=== PATIENT | male | born 1945 | race Caucasian/White ===

== ENCOUNTER 2017-10-08 12:29 | Observation (INO) | payer OTHER ==
--- NOTE | 2017-10-08 12:40 | DR.CP ---
HPI - Time Seen Time seen: 12:30 - HPI Comment HPI Comment: HISTORY HTN AND HYPERLIPIDEMIA. DENIES CHEST PAIN. - Complaint Chief Complaint Doctor Comments: IRREGULAR HEART RATE, DIZZINESS AND RAPID HEART RATE. STARTED WHEN PATIENT WAS LEAVING [place]. REMOTE HISTORY OF A FIB BUT NOT ON MED FOR IT. - Reviewed Nurses Notes Review: Yes - Source History Provided: Parent - Timing Came on: Suddenly - Duration Duration: Constant Duration: Hours - Location Chest Pain Radiation Location: None - Context Cardiac Risk Factors: Hyperlipidemia, HTN PE Risk Factors: None Prehospital Care: None - Quality Quality: Other (DIZZINESS) - Severity Severity: Moderate - Modifying Factors Worsens: Nothing Impoves: Nothing - Associated Signs and Symptoms Associated Signs and Symptoms: Other (DIZZINESS) ROS - Review of Systems Constitutional: Weakness, Fatigue Eyes: No Symptoms Reported ENTM: No Symptoms Reported Respiratoy: No Symptoms Reported Cardiovascular: No Symptoms Reported Gastrointestinal/Abdominal: No Symptoms Reported Genitourinary: No Symptoms Reported Neurological: Weakness, Dizziness Musculoskeletal: No Symptoms Reported Integumentary: No Symptoms Reported Hematologic/Lymphatic: No Symptoms Reported Endocrine: No Symptoms Reported All Other Systems: Reviewed and Negative PE - Vitals Vitals: Temperature 98.0 F Pulse Rate [Right Brachial] 93 Pulse Rate 118 Respiratory Rate 18 Blood Pressure [Right Arm] 136/99 Blood Pressure 128/78 O2 Sat by Pulse Oximetry 97 - General Limitations: No Limitations General Appearance: Alert - Head Head Exam: Normal Inspection - Eyes Eye exam: Normal Appearance - ENT ENT Exam: Normal External Ear Exam - Chest Chest Inspection: Symmetric Chest Wall Rise - Respiratory Respiratory Exam: Normal Lung Sounds Bilat Respiratory Exam: Bilateral Clear to Auscultation - Cardiovascular Cardiovascular Exam: Irregular Rhythm - Abdominal Exam Abdominal Exam: Normal Bowel Sounds, Soft. negative: Tenderness - Extremities Extremities Exam: Normal Inspection - Back Back Exam: Normal Inspection - Neurologic Neurological Exam: Alert, Oriented X3 - Psychiatric Psychiatric Exam: Normal Affect, Normal Mood - Skin Skin Exam: Normal Color MDM - Additional Information Additional Information Obtained From: Family - Differential Diagnosis Differential Diagnosis: Myocardial Infarction (ARRHYTHMIA, HTN) Course - Consultation Consultation Comments: DISCUSS PATIENT WITH DR. TREADWELL. HE WILL ADMIT PATIENT. - Education/Counseling Education/Counseling: Patient, Family, Education Educated On: Treatment, Diagnosis ROR - Labs Reviewed Laboratory Results Reviewed?: Yes Result Diagrams: 10/09/17 05:24 10/09/17 05:24 Laboratory: WBC 6.7 X10^3/uL (3.6-10.0) 10/08/17 12:37 RBC 5.31 X10^6/uL (4.7-6.0) 10/08/17 12:37 Hgb 15.8 g/dL (13.5-18.0) 10/08/17 12:37 Hct 45.5 % (42.0-54.0) 10/08/17 12:37 MCV 85.7 fL (80.0-100.0) 10/08/17 12:37 MCH 29.7 pg (27.0-34.0) 10/08/17 12:37 MCHC 34.6 g/dL (33.0-35.0) 10/08/17 12:37 RDW 14.3 % (11.6-16.5) 10/08/17 12:37 Plt Count 240 X10^3/uL (150.0-450.0) 10/08/17 12:37 MPV 8.0 fL (7.4-11.0) 10/08/17 12:37 Neut % (Auto) 48.7 % (42.0-75.0) 10/08/17 12:37 Lymph % (Auto) 38.7 % (21.0-51.0) 10/08/17 12:37 Emanuel % (Auto) 9.0 % (0.0-13.0) 10/08/17 12:37 Eos % (Auto) 2.4 % (0.9-2.9) 10/08/17 12:37 Baso % (Auto) 1.2 % (0.2-1.0) H 10/08/17 12:37 Neut # (Auto) 3.3 x10^3/uL (2.2-4.8) 10/08/17 12:37 Lymph # (Auto) 2.6 X10^3/uL (1.3-2.9) 10/08/17 12:37 Emanuel # (Auto) 0.6 x10^3/uL (0.3-0.8) 10/08/17 12:37 Eos # (Auto) 0.2 x10^3/uL (0.0-0.2) 10/08/17 12:37 Baso # (Auto) 0.1 X10^3/uL (0.0-0.1) 10/08/17 12:37 Absolute Nucleated RBC 0.1 /100WBC 10/08/17 12:37 Sodium 140 mmol/L (136-145) 10/08/17 12:37 Corrected Sodium TNP 10/08/17 12:37 Potassium 3.9 mmol/L (3.5-5.1) 10/08/17 12:37 Chloride 106 mmol/L (98-107) 10/08/17 12:37 Carbon Dioxide 23.3 mmol/L (21-32) 10/08/17 12:37 BUN 17 mg/dL (7-18) 10/08/17 12:37 Creatinine 1.21 mg/dL (0.70-1.30) 10/08/17 12:37 Est GFR (MDRD) Af Amer > 60 (>60) 10/08/17 12:37 Est GFR (MDRD) Non-Af > 60 (>60) 10/08/17 12:37 Glucose 103 mg/dL (65-99) H 10/08/17 12:37 Calcium 8.6 mg/dL (8.5-10.1) 10/08/17 12:37 Corrected Calcium TNP 10/08/17 12:37 Total Bilirubin 0.40 mg/dL (0.2-1.0) 10/08/17 12:37 AST 25 Units/L (15-37) 10/08/17 12:37 ALT 36 Units/L (12-78) 10/08/17 12:37 Alkaline Phosphatase 78 Units/L (46-116) 10/08/17 12:37 Creatine Kinase 131 Units/L (39-308) 10/08/17 12:37 CK-MB (CK-2) 1.8 ng/mL (0-4.0) 10/08/17 12:37 CK/CKMB % Calc 1.4 % (<4) 10/08/17 12:37 Troponin I < 0.02 ng/mL (0-1.5) 10/08/17 12:37 Total Protein 8.0 g/dL (6.4-8.2) 10/08/17 12:37 Albumin 3.9 g/dL (3.4-5.0) 10/08/17 12:37 Globulin 4.1 g/dL (2.5-4.5) 10/08/17 12:37 Albumin/Globulin Ratio 1.0 Ratio (1.1-2.1) L 10/08/17 12:37 - XRAY XRAY Interpreted by: Radiologist XRAY Findings: REPORT DISCUSS WITH PATIENT. - EKG Rhythm: Afib (WITH RVR, EKG NOTED) - Diagnosis Discharge Problem: Atrial fibrillation with RVR, Dizziness Hypertension Qualifiers: Hypertension type: essential hypertension Qualified Code(s): I10 - Essential ( primary) hypertension - Discharge Plan Disposition: ADMITTED INPATIENT Condition: Stable - Follow ups/Referrals - Instructions
[2017-10-08 12:44] VITALS: BMI 36.1
[2017-10-08 12:51] LABS: BASOPHILS # (AUTO) 0.1 X10^3/uL (0.0-0.1); BASOPHILS % (AUTO) 1.2 % (0.2-1.0); EOSINOPHILS # (AUTO) 0.2 x10^3/uL (0.0-0.2); EOSINOPHILS % (AUTO) 2.4 % (0.9-2.9); HEMATOCRIT 45.5 % (42.0-54.0); HEMOGLOBIN 15.8 g/dL (13.5-18.0); LYMPHOCYTES # (AUTO) 2.6 X10^3/uL (1.3-2.9); LYMPHOCYTES % (AUTO) 38.7 % (21.0-51.0); MEAN CORPUSCULAR HEMOGLOBIN 29.7 pg (27.0-34.0); MEAN CORPUSCULAR HGB CONC 34.6 g/dL (33.0-35.0); MEAN CORPUSCULAR VOLUME 85.7 fL (80.0-100.0); MONOCYTES # (AUTO) 0.6 x10^3/uL (0.3-0.8); NEUTROPHILS # (AUTO) 3.3 x10^3/uL (2.2-4.8); NEUTROPHILS % (AUTO) 48.7 % (42.0-75.0); PLATELET COUNT 240 X10^3/uL (150.0-450.0); RED BLOOD COUNT 5.31 X10^6/uL (4.7-6.0); RED CELL DISTRIBUTION WIDTH 14.3 % (11.6-16.5); WHITE BLOOD COUNT 6.7 X10^3/uL (3.6-10.0)
--- NOTE | 2017-10-08 12:57 | RAD ---
HISTORY: 72-year-old male with dizziness. Study: Frontal view of the chest. Comparison: None. Findings: The trachea is midline. The cardiac silhouette is enlarged with low lung volumes and prominent perih ilar lung markings/interstitium. The lungs are clear without focal consolidation, effusion or pneumo thorax. Soft tissues are unremarkable. Osseous structures are unremarkable. IMPRESSION: 1. Cardiomegaly with prominent interstitium/perihilar lung markings. No other acute cardiopulmonary process. Reported By:
[2017-10-08 13:05] LABS: BLOOD UREA NITROGEN 17 mg/dL (7-18); CALCIUM 8.6 mg/dL (8.5-10.1); CARBON DIOXIDE 23.3 mmol/L (21-32); CHLORIDE 106 mmol/L (98-107); CREATININE 1.21 mg/dL (0.70-1.30); SODIUM 140 mmol/L (136-145); TROPONIN I < 0.02 ng/mL (0-1.5); eGFR BLACK RACES > 60 (>60); eGFR NON BLACK RACES > 60 (>60)
[2017-10-08 13:09] LABS: ALANINE AMINOTRANSFERASE 36 Units/L (12-78); ALBUMIN 3.9 g/dL (3.4-5.0); ALKALINE PHOSPHATASE 78 Units/L (46-116); ASPARTATE AMINO TRANSFERASE 25 Units/L (15-37); CKMB % 1.4 % (<4); CREATINE KINASE 131 Units/L (39-308); CREATINE KINASE MB 1.8 ng/mL (0-4.0)
[2017-10-08] MEDS ORDERED: DEMEROL INJ IVP ONE (16:03)
[2017-10-08] MEDS ORDERED: ASPIRIN 81 MG CHEWTAB PO ONE (16:05)
[2017-10-08] MEDS ORDERED: NS 1000 ML 1,000 ML ONE (16:27)
[2017-10-08] MEDS: NS 1000 ML 1,000 ML IV SCH (16:46)
[2017-10-08] MEDS: CARDIZEM TAB 30 MG PLAIN PO SCH ×2 (16:48→21:23)
[2017-10-08 18:38] LABS: CKMB % 1.5 % (<4); CREATINE KINASE 106 Units/L (39-308); CREATINE KINASE MB 1.6 ng/mL (0-4.0); TROPONIN I < 0.02 ng/mL (0-1.5)
[2017-10-08] MEDS: ELIQUIS PO SCH (20:40)
[2017-10-08 23:20] LABS: FREE T4 (FREE THYROXINE) 0.83 ng/dL (0.76-1.46); TSH (3RD GENERATION) 1.654 uIU/mL (0.358-3.74)
[2017-10-09 01:50] LABS: CKMB % 1.3 % (<4); CREATINE KINASE 96 Units/L (39-308); CREATINE KINASE MB 1.2 ng/mL (0-4.0); TROPONIN I < 0.02 ng/mL (0-1.5)
[2017-10-09] MEDS: NS 1000 ML 1,000 ML IV SCH ×2 (05:08→21:06)
[2017-10-09] MEDS: CARDIZEM TAB 30 MG PLAIN PO SCH ×3 (05:54→21:07)
[2017-10-09 06:24] LABS: BASOPHILS # (AUTO) 0.1 X10^3/uL (0.0-0.1); BASOPHILS % (AUTO) 1.4 % (0.2-1.0); EOSINOPHILS # (AUTO) 0.2 x10^3/uL (0.0-0.2); EOSINOPHILS % (AUTO) 3.1 % (0.9-2.9); HEMATOCRIT 42.2 % (42.0-54.0); HEMOGLOBIN 14.2 g/dL (13.5-18.0); LYMPHOCYTES # (AUTO) 1.7 X10^3/uL (1.3-2.9); LYMPHOCYTES % (AUTO) 30.7 % (21.0-51.0); MEAN CORPUSCULAR HEMOGLOBIN 29.3 pg (27.0-34.0); MEAN CORPUSCULAR HGB CONC 33.7 g/dL (33.0-35.0); MEAN PLATELET VOLUME 8.1 fL (7.4-11.0); MONOCYTES # (AUTO) 0.5 x10^3/uL (0.3-0.8); MONOCYTES % (AUTO) 8.3 % (0.0-13.0); NEUTROPHILS # (AUTO) 3.2 x10^3/uL (2.2-4.8); NEUTROPHILS % (AUTO) 56.5 % (42.0-75.0); PLATELET COUNT 193 X10^3/uL (150.0-450.0); RED BLOOD COUNT 4.86 X10^6/uL (4.7-6.0); RED CELL DISTRIBUTION WIDTH 14.3 % (11.6-16.5); WHITE BLOOD COUNT 5.6 X10^3/uL (3.6-10.0)
[2017-10-09 06:39] LABS: ALANINE AMINOTRANSFERASE 28 Units/L (12-78); ALBUMIN 3.1 g/dL (3.4-5.0); ALKALINE PHOSPHATASE 56 Units/L (46-116); ASPARTATE AMINO TRANSFERASE 19 Units/L (15-37); BLOOD UREA NITROGEN 17 mg/dL (7-18); CALCIUM 7.8 mg/dL (8.5-10.1); CARBON DIOXIDE 23.3 mmol/L (21-32); CHLORIDE 109 mmol/L (98-107); CHOL/HDL RATIO 5.2 (0.0-5.0); CHOLESTEROL 141 mg/dL (0-200); COR CA(FOR HYPOALB) 8.5 mg/dL (8.5-10.1); CREATININE 1.17 mg/dL (0.70-1.30); HDL CHOLESTEROL 27 mg/dL (40-60); SODIUM 141 mmol/L (136-145); TOTAL PROTEIN 6.5 g/dL (6.4-8.2); TRIGLYCERIDES 72 mg/dL (0-150); eGFR BLACK RACES > 60 (>60); eGFR NON BLACK RACES > 60 (>60)
[2017-10-09] MEDS: ELIQUIS PO SCH ×2 (09:26→21:06)
[2017-10-09] MEDS: SYNTHROID 25 mcg TAB PO SCH (09:26)
[2017-10-09] MEDS: ZOCOR TAB 20 MG PO SCH (09:26)
[2017-10-09] MEDS: TAB-A-VITE PO SCH (09:26)
[2017-10-09] MEDS: VITAMIN D (1.25MG) PO SCH (09:28)
[2017-10-10 05:27] LABS: BASOPHILS # (AUTO) 0.1 X10^3/uL (0.0-0.1); EOSINOPHILS # (AUTO) 0.2 x10^3/uL (0.0-0.2); EOSINOPHILS % (AUTO) 3.6 % (0.9-2.9); HEMATOCRIT 42.7 % (42.0-54.0); HEMOGLOBIN 14.5 g/dL (13.5-18.0); LYMPHOCYTES # (AUTO) 1.5 X10^3/uL (1.3-2.9); LYMPHOCYTES % (AUTO) 26.5 % (21.0-51.0); MEAN CORPUSCULAR HEMOGLOBIN 29.3 pg (27.0-34.0); MEAN CORPUSCULAR HGB CONC 33.9 g/dL (33.0-35.0); MEAN CORPUSCULAR VOLUME 86.4 fL (80.0-100.0); MEAN PLATELET VOLUME 8.3 fL (7.4-11.0); MONOCYTES # (AUTO) 0.5 x10^3/uL (0.3-0.8); MONOCYTES % (AUTO) 8.5 % (0.0-13.0); NEUTROPHILS # (AUTO) 3.4 x10^3/uL (2.2-4.8); NEUTROPHILS % (AUTO) 59.4 % (42.0-75.0); PLATELET COUNT 201 X10^3/uL (150.0-450.0); RED BLOOD COUNT 4.94 X10^6/uL (4.7-6.0); RED CELL DISTRIBUTION WIDTH 14.3 % (11.6-16.5); WHITE BLOOD COUNT 5.8 X10^3/uL (3.6-10.0)
[2017-10-10] MEDS: CARDIZEM TAB 30 MG PLAIN PO SCH ×2 (05:43→15:24)
[2017-10-10 05:45] LABS: ALANINE AMINOTRANSFERASE 27 Units/L (12-78); ALBUMIN 3.2 g/dL (3.4-5.0); ALKALINE PHOSPHATASE 63 Units/L (46-116); ASPARTATE AMINO TRANSFERASE 18 Units/L (15-37); BLOOD UREA NITROGEN 19 mg/dL (7-18); CALCIUM 7.8 mg/dL (8.5-10.1); CARBON DIOXIDE 23.6 mmol/L (21-32); CHLORIDE 110 mmol/L (98-107); COR CA(FOR HYPOALB) 8.4 mg/dL (8.5-10.1); CREATININE 1.22 mg/dL (0.70-1.30); SODIUM 142 mmol/L (136-145); TOTAL PROTEIN 6.6 g/dL (6.4-8.2); eGFR BLACK RACES > 60 (>60); eGFR NON BLACK RACES > 60 (>60)
[2017-10-10] MEDS: SYNTHROID 25 mcg TAB PO SCH (09:49)
[2017-10-10] MEDS: ZOCOR TAB 20 MG PO SCH (09:49)
[2017-10-10] MEDS: VITAMIN D (1.25MG) PO SCH (09:49)
[2017-10-10] MEDS: ELIQUIS PO SCH (09:49)
[2017-10-10] MEDS: TAB-A-VITE PO SCH (09:49)
[2017-10-10 12:59] VITALS: BP 139/94
== END 2017-10-10 15:35 | disposition home or self-care (01) ==
LOC: ER 12:29 → MED/SURG 15:50
PROVIDERS: ADMIT Internal Medicine; ATTEND Internal Medicine
DX: I48.0 Paroxysmal atrial fibrillation (principal); I10 Essential (primary) hypertension; R42 Dizziness and giddiness; R94.31 Abnormal electrocardiogram [ECG] [EKG]; I51.7 Cardiomegaly
CPT/HCPCS: 36415; 71045; 80053; 80061; 82550; 82553; 84439; 84443; 84484; 85025; 93005; 93010; 94760; 96365; 96374; 99218; 99284; 99285; A4216; A4222; G0378